=== PATIENT | female | born 1955 | race Caucasian/White ===

== ENCOUNTER → 2024-08-19 11:09 | Outpatient (REF) | payer MEDICARE, BC, SELFPAY ==
[2024-08-21 18:19] LABS: Calprotectin, Fecal 18 ug/g (<=49)
== END ==
LOC: REG 11:09
PROVIDERS: ATTENDING PHYSICIAN Internal Medicine Gastroenterology; FAMILY PHYSICIAN Internal Medicine
DX: R19.7 Diarrhea, unspecified (principal)
CPT/HCPCS: 83993

== ENCOUNTER 2024-08-26 06:16 | Day surgery (SDC) | payer MEDICARE, BC, SELFPAY | END 2024-08-26 10:58 | disposition home or self-care (01) | LOC: GI 06:16 | PROVIDERS: ATTENDING PHYSICIAN Internal Medicine Gastroenterology | DX: Z12.11 Encounter for screening for malignant neoplasm of colon (principal); K64.0 First degree hemorrhoids; K57.30 Diverticulosis of large intestine without perforation or abscess without bleeding; K55.20 Angiodysplasia of colon without hemorrhage; R12 Heartburn; R19.7 Diarrhea, unspecified; K44.9 Diaphragmatic hernia without obstruction or gangrene; K31.7 Polyp of stomach and duodenum; K31.89 Other diseases of stomach and duodenum; K22.89 Other specified disease of esophagus; D12.3 Benign neoplasm of transverse colon; D12.5 Benign neoplasm of sigmoid colon; K20.80 Other esophagitis without bleeding | CPT/HCPCS: 45385; 45380; 43239; 88305; 88342 ==